=== PATIENT | male | born 1980 | race Caucasian/White ===

== ENCOUNTER 2017-06-21 19:56 | Emergency (ER) | payer BC, MEDICAID ==
[2017-06-21 19:56] VITALS: BMI 32.5
[2017-06-21 20:02] VITALS: RESP 18; TEMP 97.8
[2017-06-21] MEDS ORDERED: Lidocaine 2% Inj (20ml) INFIL ONE (20:24)
[2017-06-21] MEDS ORDERED: Lidocaine 2% Inj (20ml) ONE (20:26)
[2017-06-21] MEDS ORDERED: Tetanus/Diphtheria Toxoids 0.5 ml Syringe IM ONE (20:40)
--- NOTE | 2017-06-21 20:49 | C.PDOC ---
History Of Present Illness 37 yo male come in for evaluation of Right big toe laceration sustained [employer] at home. Pt sts, " cut my toe over the bed frame, noted some bleeding". Otherwise, pt denies obvious deformity, weakness, sensory or vascular deficits to Right foot. Ambulate to Ed for evaluation, not in any apparent distress. Time Seen by Provider: 06/21/17 20:04 Chief Complaint (Nursing): Abnormal Skin Integrity History Per: Patient Past Medical History Reviewed: Historical Data, Nursing Documentation, Vital Signs Vital Signs: Last Vital Signs Temp 97.8 F 06/21/17 19:59 Pulse 86 06/21/17 19:59 Resp 18 06/21/17 19:59 BP 121/79 06/21/17 19:59 Pulse Ox 97 06/21/17 19:59 - Medical History PMH: Asthma Denies: Chronic Kidney Disease - [facility] APPLICATION OF SPLINT (03/25/14) Family History: States: No Known Family Hx - Social History Hx Tobacco Use: No Hx Alcohol Use: No Hx Substance Use: No - Immunization History Hx Tetanus Toxoid Vaccination: No Hx Influenza Vaccination: No Hx Pneumococcal Vaccination: No Review Of Systems Except As Marked, All Systems Reviewed And Found Negative. Constitutional: Negative for: Fever, Chills Musculoskeletal: Positive for: Foot Pain Skin: Positive for: Lesions Neurological: Negative for: Weakness, Numbness Physical Exam - Physical Exam Appears: Well, Non-toxic, No Acute Distress Skin: Normal Color, Warm Extremity: Normal ROM (Right foot), Capillary Refill (less than 2sec to Right foot), No Deformity, Other (Right foot: laceration 3cm length through dermis over plantar aspect 1st proximal phalanx, C-shape, mild bloody oozing noted, no wound FB. FAROM of Right foot, no neurovascular deficits.) Neurological/Psych: Oriented x3, Normal Speech, Normal Motor, Normal Sensation, Normal Reflexes ED Course And Treatment O2 Sat by Pulse Oximetry: 97 Progress Note: On re-eval, pt is afebrile, hemodynamicaly stable. non-toxic. Right foot: laceration over 1st toe closed with sutures, pt tolerated well.FAROM , no neurovascular deficits. tetanus given. Pt advised on wound care. ref. to f/u with PMD in 2-3 days for wound check. Return to ED if ay sign of infection. Laceration - Laceration Repair Right foot Wound Length (In cm): 3cm Description Of Wound: Linear (through dermis) Anesthesia: Lidocaine 2% (Right 1st toe digital block) Wound Examination: Irrigated With Saline, No FB With Wound Exploration, No Tendon Injury With Wound Exploration Wound Closure: Suture (#5) Suture Technique And Material Used: Interrupted, Nylon (4-0) Wound Complexity: Simple Disposition Counseled Patient/Family Regarding: Diagnosis, Need For Followup - Disposition Referrals: Shaik Kang MD [Staff Provider] - Disposition: HOME/ ROUTINE Disposition Time: 20:47 Condition: STABLE Additional Instructions: KEEP WOUND CLEAN, DRY CLEAN WITH PEROXIDE APPLY ANTIBACTERIAL CREAM TOPICALLY DAILY SUTURE REMOVAL IN 10 DAYS RETURN TO ED AT ANY TIME IF ANY SIGN OF INFECTION. Prescriptions: Bacitracin OINT 1 applic TP BID #1 tube Instructions: Laceration (ED), Care For Your Stitches (ED) Forms: [facility] (Nauruan), Work Excuse - Clinical Impression Clinical Impression: Laceration
[2017-06-21 20:54] VITALS: BP 122/72; PULSE 72
[2017-06-21 20:56] VITALS: O2SAT 97
== END 2017-06-21 20:55 | disposition home or self-care (01) ==
LOC: C.ER 19:56
DX: S61.011A Laceration without foreign body of right thumb without damage to nail, initial encounter (principal); W45.8XXA Other foreign body or object entering through skin, initial encounter; Y93.89 Activity, other specified; Y92.003 Bedroom of unspecified non-institutional (private) residence as the place of occurrence of the external cause; Z23 Encounter for immunization